=== PATIENT | male | born 1985 | race Caucasian/White ===

== ENCOUNTER 2018-08-28 09:24 | Day surgery (SDC) | payer BC ==
[~2018-08-28] VITALS: Ht 162.6 cm; Wt 58.5 kg
[2018-08-28] VITALS (18 sets, daily range): BP systolic 101–120; BP diastolic 55–68; PULSE 50–62; RESP 16–18; Ht 162.6 cm; Wt 58.5 kg
[~2018-08-28 09:24] MED LIST: BUPIVACAINE 0.25% (MPF) 30 ML INJ INJ ONE; DESFLURANE 15 MIN ONE; POLYMYXIN/BACITRACIN 1L IRRIG IRR ONE
[2018-08-28] MEDS ORDERED: CEFAZOLIN 2 GM/50 ML (PMX) 50 ML IVPB ONE (11:30)
[2018-08-28] MEDS ORDERED: SOD CHLORIDE 0.9% 1,000 ML IV SCH (11:30)
--- NOTE | 2018-08-28 12:09 | PREAC ---
Date/Time of Note Date/Time of Note DATE: 08/28/18 TIME: 12:08 Anesthesia Eval and Record Evaluation Time Pre-Procedure Interview DATE: 08/28/18 TIME: 12:08 Age 33 Sex male NPO: 8 hrs Preoperative diagnosis L. Inguinal Hernia Planned procedure Inguinal Hernia Repair Past Medical History Past Medical History: None Surgery & Anesthesia Issues Hx of PONV, Other issues Meds Anticoagulation: No Beta Abebe within 24 hr: No Reason Beta Abebe not given: Pt. not on B-Abebe No Active Prescriptions or Reported Meds Current Medications Cefazolin Sodium/ Dextrose 50 ml @ 100 mls/hr PRE-OP ONCE IVPB ; Start 08/28/18 at 11:30; Stop 08/28/18 at 11:59 Sodium Chloride 1,000 ml @ 75 mls/hr [id number] IV Last administered on 08/28/18at 10:25; Admin Dose 75 MLS/HR; Start 08/28/18 at 11:30; Stop 08/29/18 at 00:49 Meds reviewed: Yes Allergies Coded Allergies: No Known Allergy (Unverified , 08/28/18) Allergies Reviewed: Yes Labs/Studies Labs Reviewed: Reviewed by anesthesiologist test: N/A Pre-procedure Exam Last vitals Vital Signs Date Temp Pulse Resp B/P (MAP) Pulse Ox O2 O2 Flow FiO2 Time Delivery Rate 08/28/18 98.4 60 16 120/68 100 Room Air 10:29 (85) Airway: Adequate mouth opening Mallampati: Mallampati II Teeth: Normal Lung: Normal Heart: Normal ASA Physical Status ASA physical status: 2 Emergency: None Planned Anesthetic General/MAC: ETT Pre-operative Attestations Prior to commencing anesthesia and surgery, the patient was re-evaluated, there was verification of: *The patient's identity *The results of appropriate recent lab work and preoperative vital signs *The above evaluation not changing prior to induction *Anesthetic plan, risk benefits, alternative and complications discussed with patient/family; questions answered; patient/family understands, accepts and wishes to proceed. SALONI ATKINSON MD Aug 28, 2018 12:09
[2018-08-28] MEDS ORDERED: KETOROLAC 30 MG INJ ONE (12:15)
[2018-08-28] MEDS ORDERED: MIDAZOLAM 1 MG/ML 2 ML INJ ONE (12:15)
[2018-08-28] MEDS ORDERED: ONDANSETRON 4 MG INJ ONE (12:15)
[2018-08-28] MEDS ORDERED: PROPOFOL 20 ML ONE (12:15)
[2018-08-28] MEDS ORDERED: ROCURONIUM 50 MG INJ ONE (12:15)
[2018-08-28] MEDS ORDERED: CEFAZOLIN 1 GM INJ ONE (12:15)
[2018-08-28] MEDS ORDERED: BUPIVACAINE 0.25% (MPF) 30 ML INJ ONE (12:16)
[2018-08-28] MEDS ORDERED: OXYCODONE/ACETAMINOPHEN (5/325) TAB PO PRN (12:30)
[2018-08-28] MEDS ORDERED: ONDANSETRON 4 MG INJ IV PRN (12:30)
[2018-08-28] MEDS ORDERED: FENTAnyl 50 MCG/ML VIAL IV PRN (12:30)
[2018-08-28] MEDS ORDERED: HYDROmorphONE 1 MG/5 ML IV SYRINGE IV PRN (12:30)
[2018-08-28] MEDS ORDERED: NEOSTIGMINE 3 MG/3 ML SYRINGE ONE (12:46)
[2018-08-28] MEDS ORDERED: GLYCOPYRROLATE 0.4 MG INJ ONE (12:46)
[2018-08-28] MEDS ORDERED: BUPIVACAINE 0.25% (MPF) 30 ML INJ INJ ONE (12:56)
[2018-08-28] MEDS ORDERED: POLYMYXIN/BACITRACIN 1L IRRIG IRR ONE (12:56)
--- NOTE | 2018-08-28 13:08 | OPR ---
Date/Time of Note Date/Time of Note DATE: 08/28/18 TIME: 13:06 Operative Report Procedure Date: Aug 28, 2018 Preoperative Diagnosis left incarcerated inguinal hernia Postoperative Diagnosis same Operation/Procedure Performed 1. open left incarcerated inguinal hernia repair with ultrapro plug hernia system mesh 2. therapeutic injection of subcutaneous local anesthesia Surgeon see signature line Bottom Cementer none Anesthesia Type: general Estimated Blood Loss: 0 - 10 ml's Transfusion none Specimen none Grafts/Implants none Complications none Pt Condition Post Procedure: stable Indications This is a 33-year-old male with an incarcerated left inguinal hernia. He requires surgical repair. Risks alternatives benefits and personal were discussed the patient. Patient expressed understanding consents to the operation. Procedure Description Patient is taken to the OR and prepped and draped in usual sterile fashion. Surgical time was performed. IV antibiotics given. Left inguinal oblique incision was made with a 15 blade. Dissection with cautery was carried down to the extremity fascia. The externally fascia was opened with a 15 blade. This incision extended medial fairly lateral sparely with Metzenbaum scissors. Cord structures identified and encircled with a [place] drain. Incarcerated indirect inguinal hernia was then manually reduced. This portion of the ultra pro hernia system mesh was then secured in place the running Prolene from the pubic tubercle along the shelving edge of the inguinal limit. Superiorly the disc is here to enter oblique with interrupted 0 Vicryl. [place] mesh was secured in similar fashion with a running 0 Prolene from the pubic tubercle along the shelving single limit. Straps are created reapproximate around the cord structures with interrupted 3-0 Vicryl. [place] mesh is secured to enter oblique with interrupted Vicryl. Externally fascia was closed with running 3-0 Vicryl. Nena's fascia was closed with interrupted 0 Vicryl. Skin was closed using inzorb observable skin stapler. Therapeutic contains local anesthesia was injected at the incision site. Dry dressings were applied. Brian [email or web address] Aug 28, 2018 13:08
--- NOTE | 2018-08-28 13:18 | PAC ---
Date/Time of Note Date/Time of Note DATE: 08/28/18 TIME: 13:18 Post-Anesthesia Notes Post-Anesthesia Note Last documented vital signs Vital Signs Date Temp Pulse Resp B/P (MAP) Pulse Ox O2 O2 Flow FiO2 Time Delivery Rate 08/28/18 98.4 60 16 120/68 100 Room Air 10:29 (85) Activity: WNL Respiratory function: WNL Cardiovascular function: WNL Mental status: Baseline Pain reasonably controlled: Yes Hydration appropriate: Yes Nausea/Vomiting absent: Yes SALONI ATKINSON MD Aug 28, 2018 13:18
[2018-08-28] MEDS ORDERED: HYDROCODONE/APAP (5/325) TAB PO ONE (13:30)
== END 2018-08-28 16:15 | disposition home or self-care (01) ==
LOC: SDS 09:24
PROVIDERS: ATTEND Surgery
DX: K40.30 Unilateral inguinal hernia, with obstruction, without gangrene, not specified as recurrent (principal)
CPT/HCPCS: 49507; C1781; J0690; J1885; J2250; J2405; J2710; J3010; Z7512; Z7610